=== PATIENT | female | born 1960 | race Caucasian/White ===

== ENCOUNTER 2020-12-19 19:10 | Emergency (ER) | payer BC ==
[2020-12-19 20:04] VITALS: BP 137/71; PULSE 77; TEMP 98.3; BMI 25.6
== END 2020-12-19 23:19 | disposition home or self-care (01) ==
LOC: JER 19:10
DX: S86.912A Strain of unspecified muscle(s) and tendon(s) at lower leg level, left leg, initial encounter (principal); M79.605 Pain in left leg
CPT/HCPCS: 93971-TC; 99283-25